=== PATIENT | female | born 1960 | race Caucasian/White ===

== ENCOUNTER 2023-11-02 13:26 | Inpatient (IN) | payer MEDICAID ==
[~2023-11-02] VITALS: Ht 160 cm; Wt 94.3 kg
[2023-11-02 15:36] LABS: BASOPHILS % 0.7 % (0.0-2.0); DIFFERENTIAL COMMENT 0; EOSINOPHILS % 3.1 % (0.0-5.0); HEMATOCRIT. 41.3 % (36.0-48.0); HEMOGLOBIN. 12.7 g/dL (12.0-16.0); LYMPHOCYTES % 26.7 % (20.0-50.0); MEAN CORPUSCULAR HEMOGLOBIN 28.2 pg (28.0-32.0); MEAN CORPUSCULAR HGB CONC 30.8 g/dL (31.0-37.0); MEAN CORPUSCULAR VOLUME 91.5 fL (81.0-99.0); MEAN PLATELET VOLUME 7.8 fl (7.4-10.4); MONOCYTES % 7.5 % (2.0-8.0); PLATELET 297 x1000/uL (130-400); RED BLOOD CELL COUNT 4.51 mill/uL (4.2-5.4); RED CELL DISTRIBUTION WIDTH 18.7 % (11.6-14.6); WHITE BLOOD COUNT 8.3 x1000/uL (4.5-11.0)
[2023-11-02 15:52] LABS: ALANINE AMINOTRANSFERASE 58 IU/L (10-49); ALBUMIN 4.3 g/dL (3.2-4.8); ASPARTATE AMINOTRANSFERASE 42 IU/L (<34); BILIRUBIN TOTAL 0.2 mg/dL (0.1-1.0); CALCIUM 8.2 mg/dL (8.7-10.4); CARBON DIOXIDE 17 mEq/L (21-32); CHLORIDE 108 mEq/L (98-107); GLUCOSE 146 mg/dL (70-105); POTASSIUM 5.2 mEq/L (3.5-5.1); PROTEIN TOTAL 7.7 g/dL (6.0-8.3); SODIUM 139 mEq/L (136-145); TROPONIN I HIGH SENSITIVITY 12 ng/L (3.0-34); UREA NITROGEN BLOOD 84 mg/dL (9-23)
[2023-11-02 16:07] LABS: CREATININE 10.7 mg/dL (0.6-1.0)
[2023-11-02 19:02] VITALS: PULSE 66; RESP 12; O2SAT 100
[2023-11-02] MEDS: ALBUTEROL (0.083%) 2.5MG/3ML NEB HHN ONE (19:02)
[2023-11-02] MEDS: CALCIUM GLUCONATE 1GM PREMIX 50 ML IV ONE (19:15)
[2023-11-02] MEDS ORDERED: DEXTROSE 50% WATER 50ML SYRINGE IV PRN (20:00)
[2023-11-02] MEDS ORDERED: IPRATROPIUM/ALBUTEROL 0.5-3(2.5)MG/3ML NEB HHN PRN (20:00)
[2023-11-02] MEDS: DEXTROSE 50% WATER 50ML SYRINGE IV ONE (20:24)
[2023-11-02] MEDS: INSULIN REGULAR (HUMULIN R) 300UNITS/3ML VIAL IV ONE (20:29)
[2023-11-02] MEDS: FUROSEMIDE 40MG/4ML VIAL IVP NR (20:50)
[2023-11-02] MEDS ORDERED: SENNOSIDES/DOCUSATE SOD 8.6/50MG TABLET PO PRN (21:30)
[2023-11-02] MEDS: BLOOD SUGAR DIAGNOSTIC STRIP TEST SCH (22:40)
[2023-11-02] MEDS: INSULIN LISPRO 100 UNITS/ML SUBCUT SCH (22:40)
[2023-11-02] MEDS: INSULIN REGULAR (HUMULIN R) 300UNITS/3ML VIAL IV NR (23:18)
[2023-11-02] MEDS: DEXTROSE 50% WATER 50ML SYRINGE IV NR (23:18)
[2023-11-03] VITALS (15 sets, daily range): BP systolic 82–176; BP diastolic 37–91; PULSE 61–78; RESP 16–19; TEMP 96.6–98.1
[2023-11-03] MEDS: CLONIDINE 0.1MG TABLET PO NR (02:24)
[2023-11-03 06:27] LABS: BASOPHILS % 0.5 % (0.0-2.0); DIFFERENTIAL COMMENT 0; HEMATOCRIT. 39.9 % (36.0-48.0); HEMOGLOBIN. 12.2 g/dL (12.0-16.0); LYMPHOCYTES % 23.6 % (20.0-50.0); MEAN CORPUSCULAR HEMOGLOBIN 28.3 pg (28.0-32.0); MEAN CORPUSCULAR HGB CONC 30.5 g/dL (31.0-37.0); MEAN CORPUSCULAR VOLUME 92.7 fL (81.0-99.0); MEAN PLATELET VOLUME 8.1 fl (7.4-10.4); MONOCYTES % 10.5 % (2.0-8.0); NEUTROPHILS % 62.4 % (40.0-76.0); PLATELET 262 x1000/uL (130-400); RED CELL DISTRIBUTION WIDTH 18.2 % (11.6-14.6); WHITE BLOOD COUNT 7.9 x1000/uL (4.5-11.0)
[2023-11-03 06:48] LABS: ALANINE AMINOTRANSFERASE 53 IU/L (10-49); ASPARTATE AMINOTRANSFERASE 43 IU/L (<34); BILIRUBIN TOTAL 0.2 mg/dL (0.1-1.0); CALCIUM 8.4 mg/dL (8.7-10.4); CARBON DIOXIDE 15 mEq/L (21-32); CHLORIDE 110 mEq/L (98-107); GLUCOSE 124 mg/dL (70-105); POTASSIUM 5.4 mEq/L (3.5-5.1); PROTEIN TOTAL 7.2 g/dL (6.0-8.3); SODIUM 141 mEq/L (136-145); UREA NITROGEN BLOOD 84 mg/dL (9-23)
[2023-11-03 08:27] LABS: CREATININE 11.2 mg/dL (0.6-1.0)
[2023-11-03] MEDS: OMEPRAZOLE 20MG CAPSULE EXTENDED RELEASE PO SCH (09:18)
[2023-11-03 12:32] LABS: HEPATITIS A AB IGM NEGATIVE (Negative); HEPATITIS B CORE AB IGM NEGATIVE (Negative); HEPATITIS B SURFACE ANTIGEN NEGATIVE (Negative); HEPATITIS C AB NON REACTIVE (Neg) (Negative)
[2023-11-03] MEDS: SEVELAMER CARBONATE 800 MG TABLET PO SCH (17:56)
[2023-11-04] VITALS (14 sets, daily range): BP systolic 104–169; BP diastolic 41–58; PULSE 65–71; RESP 10–20; TEMP 97.2–98.6
[2023-11-04 06:07] LABS: HEMATOCRIT 37.7 % (36.0-48.0); HEMOGLOBIN 11.7 g/dL (12.0-16.0); MEAN CORPUSCULAR HEMOGLOBIN 28.4 pg (28.0-32.0); MEAN CORPUSCULAR VOLUME 91.5 fL (81.0-99.0); PLATELET 247 x1000/uL (130-400); RED BLOOD CELL COUNT 4.13 mill/uL (4.2-5.4); RED CELL DISTRIBUTION WIDTH 18.3 % (11.6-14.6); WHITE BLOOD COUNT 6.8 x1000/uL (4.5-11.0)
[2023-11-04 06:33] LABS: CALCIUM 7.7 mg/dL (8.7-10.4); CARBON DIOXIDE 19 mEq/L (21-32); CHLORIDE 104 mEq/L (98-107); GLUCOSE 140 mg/dL (70-105); PHOSPHORUS 7.8 mg/dL (2.5-4.9); POTASSIUM 4.8 mEq/L (3.5-5.1); SODIUM 138 mEq/L (136-145); UREA NITROGEN BLOOD 76 mg/dL (9-23)
[2023-11-04 06:45] LABS: INR 0.9; PROTHROMBIN TIME 10.5 sec (9.6-11.0)
[2023-11-04] MEDS: FOLIC ACID/VITAMIN B COMP W-C TABLET PO SCH (09:00)
[2023-11-04] MEDS ORDERED: LIDOCAINE HCL 1% 10 MG/ML 10ML VIAL ONE (10:06)
[2023-11-04] MEDS ORDERED: IOHEXOL-300 100 ML BOTTLE ONE (10:07)
[2023-11-05] VITALS (10 sets, daily range): BP systolic 97–120; BP diastolic 34–66; PULSE 64–73; RESP 17–20; TEMP 97.1–98.5
[2023-11-05 11:17] LABS: HEMATOCRIT 38.2 % (36.0-48.0); MEAN CORPUSCULAR HEMOGLOBIN 28.1 pg (28.0-32.0); MEAN CORPUSCULAR HGB CONC 31.3 g/dL (31.0-37.0); MEAN CORPUSCULAR VOLUME 89.7 fL (81.0-99.0); PLATELET 212 x1000/uL (130-400); RED BLOOD CELL COUNT 4.26 mill/uL (4.2-5.4); RED CELL DISTRIBUTION WIDTH 17.9 % (11.6-14.6); WHITE BLOOD COUNT 7.3 x1000/uL (4.5-11.0)
[2023-11-05 11:37] LABS: CALCIUM 7.5 mg/dL (8.7-10.4); CARBON DIOXIDE 16 mEq/L (21-32); CHLORIDE 104 mEq/L (98-107); GLUCOSE 171 mg/dL (70-105); PHOSPHORUS 7.7 mg/dL (2.5-4.9); POTASSIUM 4.8 mEq/L (3.5-5.1); SODIUM 135 mEq/L (136-145); UREA NITROGEN BLOOD 98 mg/dL (9-23)
[2023-11-05 11:39] LABS: CREATININE 10.9 mg/dL (0.6-1.0)
[2023-11-06] VITALS: BP 110/40; PULSE 70; RESP 19; TEMP 97.9
[2023-11-06 04:00] VITALS: BP 123/41; PULSE 67; RESP 18; TEMP 98.1
[2023-11-06 06:19] LABS: CALCIUM 7.5 mg/dL (8.7-10.4); CARBON DIOXIDE 21 mEq/L (21-32); CHLORIDE 100 mEq/L (98-107); GLUCOSE 134 mg/dL (70-105); PHOSPHORUS 6.3 mg/dL (2.5-4.9); POTASSIUM 4.6 mEq/L (3.5-5.1); SODIUM 134 mEq/L (136-145); UREA NITROGEN BLOOD 81 mg/dL (9-23)
[2023-11-06 06:20] LABS: CREATININE 10.1 mg/dL (0.6-1.0)
[2023-11-06 08:00] VITALS: BP 126/41; PULSE 64; RESP 20; TEMP 97.2
[2023-11-06 12:00] VITALS: BP 110/48; PULSE 66; RESP 20; TEMP 97.8
[2023-11-06 16:00] VITALS: BP 112/52; PULSE 68; RESP 20; TEMP 97.4
[2023-11-06 20:00] VITALS: BP 100/42; PULSE 71; RESP 18; TEMP 97.7
[2023-11-07] VITALS (15 sets, daily range): BP systolic 101–139; BP diastolic 30–79; PULSE 64–78; RESP 15–20; TEMP 96.3–98.8
[2023-11-07 07:34] LABS: CALCIUM 7.1 mg/dL (8.7-10.4)
[2023-11-07 07:36] LABS: CREATININE 10.9 mg/dL (0.6-1.0)
[2023-11-07] MEDS: PANTOPRAZOLE 40MG DR TABLET PO SCH (17:37)
[2023-11-07] MEDS: SUCRALFATE 1G TABLET PO SCH (17:37)
[2023-11-08] VITALS: BP 135/65; PULSE 75; RESP 18; TEMP 96.5
[2023-11-08 04:00] VITALS: BP 127/66; PULSE 72; RESP 19; TEMP 96.7
[2023-11-08 08:00] VITALS: BP 146/50; PULSE 71; RESP 18; TEMP 98.2
[2023-11-08 12:00] VITALS: BP 138/43; PULSE 65; RESP 16; TEMP 97.7
[2023-11-08 16:00] VITALS: BP 163/53; PULSE 71; RESP 18; TEMP 97.9
[2023-11-08] MEDS: SEVELAMER CARBONATE 800 MG TABLET PO SCH (17:29)
[2023-11-08 20:00] VITALS: BP 125/64; PULSE 68; RESP 18; TEMP 98.5
[2023-11-08] MEDS: ACETAMINOPHEN 325MG TABLET PO PRN (21:14)
[2023-11-09] VITALS (10 sets, daily range): BP systolic 99–142; BP diastolic 31–70; PULSE 64–77; RESP 16–19; TEMP 97–97.9
[2023-11-09 06:34] LABS: CALCIUM 7.4 mg/dL (8.7-10.4); CARBON DIOXIDE 19 mEq/L (21-32); CHLORIDE 100 mEq/L (98-107); CHOLESTEROL 173 mg/dL (<200); GLUCOSE 112 mg/dL (70-105); HDL CHOLESTEROL 50 mg/dL (>65); LDL CHOLESTEROL 100 mg/dL (5-100); PHOSPHORUS 6.7 mg/dL (2.5-4.9); SODIUM 133 mEq/L (136-145); TRIGLYCERIDE 190 mg/dL (0-150)
[2023-11-09 07:01] LABS: CREATININE 11.1 mg/dL (0.6-1.0); UREA NITROGEN BLOOD 104 mg/dL (9-23)
[2023-11-10] VITALS (7 sets, daily range): BP systolic 100–131; BP diastolic 30–69; PULSE 68–76; RESP 16–19; TEMP 97.3–98.1; O2SAT 98
[2023-11-10 07:05] LABS: BASOPHILS % 0.6 % (0.0-2.0); EOSINOPHILS % 2.2 % (0.0-5.0); HEMATOCRIT. 34.9 % (36.0-48.0); HEMOGLOBIN. 11.2 g/dL (12.0-16.0); LYMPHOCYTES % 23.6 % (20.0-50.0); MEAN CORPUSCULAR HEMOGLOBIN 28.2 pg (28.0-32.0); MEAN CORPUSCULAR HGB CONC 32.2 g/dL (31.0-37.0); MEAN CORPUSCULAR VOLUME 87.7 fL (81.0-99.0); MEAN PLATELET VOLUME 9.2 fl (7.4-10.4); MONOCYTES % 8.6 % (2.0-8.0); PLATELET 169 x1000/uL (130-400); RED BLOOD CELL COUNT 3.98 mill/uL (4.2-5.4); RED CELL DISTRIBUTION WIDTH 16.6 % (11.6-14.6)
[2023-11-10 07:34] LABS: CALCIUM 7.6 mg/dL (8.7-10.4); POTASSIUM 4.1 mEq/L (3.5-5.1)
[2023-11-10 08:02] LABS: CREATININE 8.4 mg/dL (0.6-1.0)
[2023-11-10] MEDS: SEVELAMER CARBONATE 800 MG TABLET PO SCH (08:41)
[2023-11-10] MEDS ORDERED: SUCR1TAB30 PO (10:48)
[2023-11-10] MEDS ORDERED: NEPVIT PO (10:48)
[2023-11-10] MEDS ORDERED: PANT40TA51 PO (10:48)
[2023-11-10] MEDS ORDERED: SEVE800T8 PO (10:48)
[2023-11-10] MEDS ORDERED: LIDOCAINE HCL 1% 10 MG/ML 10ML VIAL ONE (12:31)
[2023-11-11] VITALS (10 sets, daily range): BP systolic 104–125; BP diastolic 33–70; PULSE 63–77; RESP 18–20; TEMP 97.1–98
== END 2023-11-11 16:10 | disposition home or self-care (01) | DRG 182 ==
LOC: ER 13:26 → EDBEDREQ 19:33 → 7WST 20:12
PROVIDERS: ADMIT Preventive Medicine Clinical Informatics; ATTEND Preventive Medicine Clinical Informatics
PROC: 5A1D70Z Performance of Urinary Filtration, Intermittent, Less than 6 Hours Per Day (ICD-10-PCS; 2023-11-03)
PROC: 057Y3ZZ Dilation of Upper Vein, Percutaneous Approach (ICD-10-PCS; 2023-11-04)
PROC: B51N1ZZ Fluoroscopy of Left Upper Extremity Veins using Low Osmolar Contrast (ICD-10-PCS; 2023-11-04)
PROC: B31N1ZZ Fluoroscopy of Other Upper Arteries using Low Osmolar Contrast (ICD-10-PCS; 2023-11-04)
PROC: B5171ZZ Fluoroscopy of Left Subclavian Vein using Low Osmolar Contrast (ICD-10-PCS; 2023-11-04)
PROC: 037Y3ZZ Dilation of Upper Artery, Percutaneous Approach (ICD-10-PCS; 2023-11-04)
PROC: 5A1D70Z Performance of Urinary Filtration, Intermittent, Less than 6 Hours Per Day (ICD-10-PCS; 2023-11-05)
PROC: 5A1D70Z Performance of Urinary Filtration, Intermittent, Less than 6 Hours Per Day (ICD-10-PCS; 2023-11-07)
PROC: 5A1D70Z Performance of Urinary Filtration, Intermittent, Less than 6 Hours Per Day (ICD-10-PCS; 2023-11-09)
PROC: 0JPW3XZ Removal of Tunneled Vascular Access Device from Lower Extremity Subcutaneous Tissue and Fascia, Percutaneous Approach (ICD-10-PCS; principal; 2023-11-10)
PROC: 5A1D70Z Performance of Urinary Filtration, Intermittent, Less than 6 Hours Per Day (ICD-10-PCS; 2023-11-11)
DX: T82.858A Stenosis of other vascular prosthetic devices, implants and grafts, initial encounter (principal); I50.33 Acute on chronic diastolic (congestive) heart failure; N18.6 End stage renal disease; E11.22 Type 2 diabetes mellitus with diabetic chronic kidney disease; E83.39 Other disorders of phosphorus metabolism; E83.51 Hypocalcemia; E87.1 Hypo-osmolality and hyponatremia; D64.9 Anemia, unspecified; E87.5 Hyperkalemia; K21.9 Gastro-esophageal reflux disease without esophagitis; H54.8 Legal blindness, as defined in USA; K59.09 Other constipation; E11.65 Type 2 diabetes mellitus with hyperglycemia; Z91.199 Patient's noncompliance with other medical treatment and regimen due to unspecified reason; Z90.49 Acquired absence of other specified parts of digestive tract; Z79.4 Long term (current) use of insulin; Z99.2 Dependence on renal dialysis; R06.03 Acute respiratory distress
CPT/HCPCS: 36415; 36589; 36905; 71045; 76937; 80048; 80053; 80061; 82962; 83036; 83735; 83880; 84100; 84484; 85025; 85027; 86705; 86706; 86709; 87340; 90935; 93005; 93306; 93971; 94640; 97116; 97162; 97166; 97530; 97535; 99285; C1725; C1766; C1769; C1887; J0610; J1644; J1815; J1940; J3490; Q9967

== ENCOUNTER 2024-04-14 13:03 | Inpatient (IN) | payer MEDICAID ==
[~2024-04-14] VITALS: Ht 165.1 cm; Wt 96.6 kg
[~2024-04-14 13:03] MED LIST: FOLI0.8T53 PO; PANT40TA51 PO; SEVE800T8 PO; SUCR1TAB30 PO
[2024-04-14 15:00] LABS: BASOPHILS % 1.4 % (0.0-2.0); DIFFERENTIAL COMMENT 0; EOSINOPHILS % 2.1 % (0.0-5.0); HEMATOCRIT. 35.9 % (36.0-48.0); HEMOGLOBIN. 11.8 g/dL (12.0-16.0); MEAN CORPUSCULAR HEMOGLOBIN 27.2 pg (28.0-32.0); MEAN CORPUSCULAR HGB CONC 32.7 g/dL (31.0-37.0); MEAN CORPUSCULAR VOLUME 83.3 fL (81.0-99.0); MEAN PLATELET VOLUME 11.6 fl (7.4-10.4); MONOCYTES % 5.6 % (2.0-8.0); NEUTROPHILS % 71.9 % (40.0-76.0); PLATELET 263 x1000/uL (130-400); RED BLOOD CELL COUNT 4.32 mill/uL (4.2-5.4); RED CELL DISTRIBUTION WIDTH 16.7 % (11.6-14.6); WHITE BLOOD COUNT 8.9 x1000/uL (4.5-11.0)
[2024-04-14] MEDS ORDERED: SODIUM CHLORIDE 0.9% 1,000 ML IV ONE (15:00)
[2024-04-14 15:02] LABS: CALCIUM 9.5 mg/dL (8.7-10.4)
[2024-04-14 15:09] LABS: BETA HYDROXYBUTYRATE 0.5 mMol/L (0.0-0.3)
[2024-04-14 15:23] LABS: CREATININE 3.4 mg/dL (0.6-1.0)
[2024-04-14] MEDS: INSULIN REGULAR (HUMULIN R) 1000UNITS/10ML VIAL SUBCUT STA (15:41)
[2024-04-14 15:44] LABS: CLARITY URINE TURBID (CLEAR); COLOR URINE YELLOW (YELLOW); GLUCOSE URINE 2+ (NEGATIVE); KETONES URINE TRACE (NEGATIVE); LEUKOCYTE ESTERASE URINE 2+ (NEGATIVE); NITRITE URINE NEGATIVE (NEGATIVE); OCCULT BLOOD URINE TRACE (NEGATIVE); PH URINE 7.5 (4.5-8.0); PROTEIN URINE 3+ (NEGATIVE); UROBILINOGEN URINE 0.2 E.U./dL (0.2-1.0)
[2024-04-14 15:44] LABS: TROPONIN I HIGH SENSITIVITY 10 ng/L (3.0-34)
[2024-04-14 15:56] LABS: WBC URINE TNTC /hpf (0-2)
[2024-04-14 15:57] LABS: BACTERIA URINE 4+; SQUAMOUS EPITHELIAL CELL URINE 3+ /lpf (RARE/1+); YEAST URINE NONE SEEN
[2024-04-14 23:03] VITALS: BP 144/52; PULSE 88; RESP 18; TEMP 36.5848
[2024-04-15] VITALS (13 sets, daily range): BP systolic 108–153; BP diastolic 41–79; PULSE 64–76; RESP 16–65; TEMP 35.78064–36.9474; O2SAT 98–100
[2024-04-15] MEDS ORDERED: GUAIFENESIN 200MG/10ML SUGAR FREE UDC PO PRN (02:45)
[2024-04-15] MEDS ORDERED: LORAZEPAM 0.5MG TABLET PO PRN (02:45)
[2024-04-15] MEDS ORDERED: ONDANSETRON HCL 4MG/2ML INJ IV PRN (02:45)
[2024-04-15] MEDS ORDERED: DEXTROSE 50% WATER 50ML SYRINGE IV PRN (02:45)
[2024-04-15] MEDS ORDERED: DOCUSATE SODIUM 100MG CAPSULE PO PRN (02:45)
[2024-04-15] MEDS ORDERED: IPRATROPIUM/ALBUTEROL 0.5-3(2.5)MG/3ML NEB HHN PRN (02:45)
[2024-04-15] MEDS ORDERED: ACETAMINOPHEN 325MG TABLET PO PRN ×2 (02:45)
[2024-04-15] MEDS ORDERED: CLONIDINE 0.1MG TABLET PO PRN (02:45)
[2024-04-15] MEDS ORDERED: MAGNESIUM/ALUMINUM HYDROXIDE/SIMETHICONE 30ML UDC PO PRN (02:45)
[2024-04-15] MEDS ORDERED: SEVELAMER CARBONATE 800 MG TABLET PO SCH (03:15)
[2024-04-15] MEDS ORDERED: METOPROLOL TARTRATE 5MG/5ML VIAL IV NR (03:45)
[2024-04-15] MEDS: BLOOD SUGAR DIAGNOSTIC STRIP TEST SCH (05:38)
[2024-04-15 06:06] LABS: CARBON DIOXIDE 29 mEq/L (21-32); CHLORIDE 100 mEq/L (98-107); POTASSIUM 4.1 mEq/L (3.5-5.1); SODIUM 136 mEq/L (136-145)
[2024-04-15 06:07] LABS: CALCIUM 9.1 mg/dL (8.7-10.4)
[2024-04-15 06:10] LABS: TROPONIN I HIGH SENSITIVITY 10 ng/L (3.0-34)
[2024-04-15 06:12] LABS: CREATININE 4.1 mg/dL (0.6-1.0); GLUCOSE 229 mg/dL (70-105); UREA NITROGEN BLOOD 22 mg/dL (9-23)
[2024-04-15 06:14] LABS: PHOSPHORUS 3.7 mg/dL (2.5-4.9)
[2024-04-15] MEDS: INSULIN LISPRO 100 UNITS/ML SUBCUT SCH (07:12)
[2024-04-15] MEDS ORDERED: AMLODIPINE 5MG TABLET PO SCH (09:00)
[2024-04-15] MEDS ORDERED: METOPROLOL TARTRATE 25MG TABLET PO SCH (09:00)
[2024-04-15] MEDS: SEVELAMER CARBONATE 800 MG TABLET PO SCH (09:45)
[2024-04-15] MEDS: CEFTRIAXONE 1GM/50ML 50 ML IV SCH (09:46)
[2024-04-15] MEDS: AMLODIPINE 5MG TABLET PO SCH (09:46)
[2024-04-15] MEDS: ENOXAPARIN 30MG/0.3ML SYR SUBCUT SCH (09:47)
[2024-04-15 12:46] LABS: HEPATITIS B SURFACE ANTIGEN NEGATIVE (Negative)
[2024-04-15 13:06] LABS: HEPATITIS A AB IGM NEGATIVE (Negative)
[2024-04-15 13:07] LABS: HEPATITIS B CORE AB IGM NEGATIVE (Negative); HEPATITIS C AB NON REACTIVE (Neg) (Negative)
[2024-04-15] MEDS ORDERED: FAMOTIDINE 20MG TABLET PO SCH (21:00)
== END 2024-04-15 18:24 | disposition home or self-care (01) | DRG 420 ==
LOC: ER 13:20 → EDBEDREQ 15:19 → 8WST 16:37 → EDBEDREQ 16:42
PROVIDERS: ADMIT Internal Medicine; ATTEND Internal Medicine
PROC: 5A1D70Z Performance of Urinary Filtration, Intermittent, Less than 6 Hours Per Day (ICD-10-PCS; principal; 2024-04-14)
DX: E11.65 Type 2 diabetes mellitus with hyperglycemia (principal); I13.2 Hypertensive heart and chronic kidney disease with heart failure and with stage 5 chronic kidney disease, or end stage renal disease; N18.6 End stage renal disease; E11.22 Type 2 diabetes mellitus with diabetic chronic kidney disease; D63.8 Anemia in other chronic diseases classified elsewhere; N39.0 Urinary tract infection, site not specified; E87.1 Hypo-osmolality and hyponatremia; K21.9 Gastro-esophageal reflux disease without esophagitis; I50.32 Chronic diastolic (congestive) heart failure; H54.8 Legal blindness, as defined in USA; Z79.899 Other long term (current) drug therapy; Z99.2 Dependence on renal dialysis; Z79.4 Long term (current) use of insulin; Z90.49 Acquired absence of other specified parts of digestive tract
CPT/HCPCS: 36415; 71045; 80048; 81003; 82010; 82962; 83735; 83880; 83930; 84100; 84484; 85025; 86705; 86709; 87077; 87186; 87340; 90935; 93005; 99285; J0696; J1650; J1815

== ENCOUNTER 2024-06-15 18:20 | Emergency (ER) | payer MEDICAID ==
[~2024-06-15] VITALS: Ht 154.9 cm; Wt 97.0 kg
[2024-06-15 18:23] VITALS: BP 148/53; PULSE 73; RESP 16; O2SAT 98
[2024-06-15 18:32] VITALS: O2SAT 100
[2024-06-15 19:36] VITALS: TEMP 98.5
[2024-06-15] MEDS: ACETAMINOPHEN 325MG TABLET PO ONE (19:36)
[2024-06-15] MEDS ORDERED: ACET-2708 MT (20:10)
== END 2024-06-15 20:40 | disposition home or self-care (01) ==
LOC: ER 18:20
DX: S52.501A Unspecified fracture of the lower end of right radius, initial encounter for closed fracture (principal); E11.9 Type 2 diabetes mellitus without complications; I12.0 Hypertensive chronic kidney disease with stage 5 chronic kidney disease or end stage renal disease; N18.6 End stage renal disease; Z90.49 Acquired absence of other specified parts of digestive tract; Z99.2 Dependence on renal dialysis; Z98.890 Other specified postprocedural states; Z79.899 Other long term (current) drug therapy; W18.39XA Other fall on same level, initial encounter; Y93.89 Activity, other specified; Y92.89 Other specified places as the place of occurrence of the external cause; Y99.8 Other external cause status
CPT/HCPCS: 29125; 73110; 73562; 99284; A4565